=== PATIENT | male | born 1935 | race Caucasian/White ===

== ENCOUNTER 2019-04-05 21:39 | Emergency (ER) | payer MEDICARE, OTHER ==
[~2019-04-05] VITALS: Ht 167.6 cm; Wt 59.0 kg
[2019-04-05 21:39] VITALS: BP 165/81
--- NOTE | 2019-04-05 21:39 | NUR ---
PT ALBERTA ALS FROM [facility] WITH C/O ALOC SUDDEN ONSET. PER FACILITY, THEY THOUGHT PATIENT WAS SLEEPING BUT THEN REALIZED PATIENT WAS NOT RESPONSIVE. PT HAS HX OF DEMENTIA AND IS NORMALLY AWAKE AND ALERT WITH SOME CONFUSION AND THAT IS HIS BASELINE BUT PT WAS NOT RESPONSIVE UPON ARRIVAL, GCS 3, NOT FOLLOWING COMMANDS. PATIENT NON VERBAL UPON ARRIVAL, NOT FOLLOWING COMMANDS, RESPONSIVE TO PAINFUL STIMULI. BP WAS 70/40 UPON EMS ARRIVAL WITH A HR OF 48. 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 BS UPON ARRIVAL 96. PT RECEIVED ROUTINE MEDICATIONS AROUND 1800 TONIGHT PER FACILITY.
--- NOTE | 2019-04-05 21:44 | NUR ---
DR HEARN AT BEDSIDE, SUSPECTING SEIZURE ACTIVITY. RECEIVED VERBAL ORDER FOR 0.5MG ATIVAN IVP. OVERRIDE-PULLED ATIVAN 2MG/1ML FROM ER PYXIS. ADMINISTERED ATIVAN 0.5MG IVP AT 2141. RECEIVED SECOND VERBAL ORDER FOR ADDITIONAL 0.5MG ATIVAN IVP. ADMINISTERED ADDITIONAL ATIVAN 0.5MG IVP AT 2143. REMAINING 1MG ATIVAN IN VIAL WASTED WITH 2 RN VERIFICATION.
[2019-04-05] MEDS ORDERED: ATOR20TA PO (21:50)
[2019-04-05] MEDS ORDERED: MECL-272 PO (21:50)
[2019-04-05] MEDS ORDERED: WARF-18 PO (21:50)
[2019-04-05] MEDS ORDERED: QUET50TA PO (21:50)
[2019-04-05] MEDS ORDERED: PROP20TA29 PO (21:50)
[2019-04-05] MEDS ORDERED: DIGO0.122 PO (21:50)
[2019-04-05] MEDS ORDERED: ATI.5 PO (21:50)
[2019-04-05] MEDS ORDERED: FINA5TAB1 PO (21:50)
[2019-04-05] MEDS ORDERED: TAMS0.4C96 PO (21:50)
[2019-04-05] MEDS ORDERED: SERT25TA PO (21:50)
[2019-04-05] MEDS ORDERED: LORazepam 2 MG/ML VIAL ONE (21:53)
[2019-04-05] MEDS ORDERED: LORazepam 2 MG/ML VIAL IVP ONE ×2 (21:55)
--- NOTE | 2019-04-05 21:55 | NUR ---
EKG BEING PERFORMED BY EMT AT BEDSIDE AT THIS TIME.
--- NOTE | 2019-04-05 21:56 | NUR ---
LABS DRAWN BY ALFREDO SANFORD AT BEDSIDE AND SET W/ RAY, TECH TO LAB.
[2019-04-05 22:07] LABS: BASOPHILS # (AUTO) 0.1 K/uL (0.00-0.22); BASOPHILS % (AUTO) 0.6 % (0.0-2.0); EOSINOPHILS # (AUTO) 0.2 K/uL (0-0.4); EOSINOPHILS % (AUTO) 2.5 % (0.0-4.0); HEMATOCRIT 42.5 % (36-52); LYMPHOCYTES # (AUTO) 1.8 K/uL (2.0-11.5); LYMPHOCYTES % (AUTO) 20.1 % (20.5-51.1); MEAN CORPUSCULAR HEMOGLOBIN 30 pg (27-31); MEAN CORPUSCULAR HGB CONC 33 g/dL (33-37); MEAN CORPUSCULAR VOLUME 90.5 fL (80-94); MONOCYTES % (AUTO) 11.3 % (1.7-9.3); NEUTROPHILS # (AUTO) 5.7 K/uL (1.8-7.7); NEUTROPHILS % (AUTO) 65.5 % (42.2-75.2); PLATELET COUNT (AUTO) 183 K/uL (140-450); RED BLOOD CELL COUNT(AUTO) 4.69 MIL/uL (4.20-6.10); RED CELL DISTRIBUTION WIDTH 14.8 % (11.6-13.7); WHITE BLOOD COUNT (AUTO) 8.7 K/uL (4.8-10.8)
[2019-04-05] MEDS ORDERED: MIDAZOLAM 2 MG/2 ML VIAL IM ONE (22:10)
--- NOTE | 2019-04-05 22:10 | NUR ---
#16 FR Saxena catheter utilizing sterile technique. Immediate return of 100 ml slightly cloudy yellow urine noted. Bedside drainage bag placed below level of bladder. Urine sample collected and sent to lab. Pt restless but able to tolerate procedure.
[2019-04-05] MEDS ORDERED: MIDAZOLAM 2 MG/2 ML VIAL IVP ONE (22:15)
[2019-04-05 22:24] LABS: ANION GAP 10.2 (8-16); CARBON DIOXIDE 25.4 mmol/L (21-32); CHLORIDE 109 mmol/L (98-107); CREATININE 1.1 mg/dL (0.7-1.3); GLUCOSE 102 mg/dL (74-106); POTASSIUM 4.6 mmol/L (3.5-5.1); SODIUM SERUM 140 mmol/L (136-145); UREA NITROGEN, BLOOD 30 mg/dL (7-18)
[2019-04-05 22:28] LABS: APPEARANCE,URINE CLEAR (CLEAR); BILIRUBIN,URINE NEGATIVE (NEGATIVE); BLOOD, URINE NEGATIVE (NEGATIVE); COLOR,URINE YELLOW (YELLOW); LEUKOCYTE ESTERASE ,URINE NEGATIVE (NEGATIVE); NITRITE, URINE NEGATIVE (NEGATIVE); PH,URINE 5.5 (5.0-9.0); UGLUCOSE NEGATIVE (NEGATIVE)
[2019-04-05 22:35] LABS: ALBUMIN 2.8 g/dL (3.4-5.0); AMYLASE 80 U/L (25-115); ASPARTATE AMINOTRANSFERASE 41 U/L (15-37); LIPASE 314 U/L (73-393); TOTAL BILIRUBIN 0.4 mg/dL (0.0-1.0)
[2019-04-05 22:37] LABS: BARBITURATE, URINE NEG. ng/ml (NEG <=200); BENZODIAZEPINE, URINE NEG. ng/mL (NEG <=200); CANNABINOID, URINE NEG. ng/mL (NEG <=50); COCAINE, URINE NEG. ng/mL (NEG <=300); OPIATE, URINE NEG. ng/mL (NEG <=2000); PHENCYCLIDINE SCREEN,URINE NEG. ng/mL (NEG <=25)
[2019-04-05 22:37] LABS: CREATINE KINASE MB 3.1 ng/mL (0-3.6)
--- NOTE | 2019-04-05 22:38 | NUR ---
PT RETURNED FROM CT VIA [facility]
--- NOTE | 2019-04-05 23:04 | NUR ---
PT SLEEPING IN BED, AROUSABLE TO TOUCH, AT BEDSIDE. VS NOTED, RR EVEN AND UNLABORED. ALL NEEDS MET AT THIS TIME.
--- NOTE | 2019-04-06 00:21 | NUR ---
PT SLEEPING IN BED, AROUSABLE TO TOUCH, AT BEDSIDE. VS NOTED, RR EVEN AND UNLABORED. ALL NEEDS MET AT THIS TIME.
--- NOTE | 2019-04-06 00:56 | NUR ---
Consent for CT chest angio signed by patient's Celia Stewart. 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
[2019-04-06] MEDS ORDERED: NACL 0.9% 1,000 ML IV ONE (01:10)
--- NOTE | 2019-04-06 01:26 | NUR ---
PT TAKEN TO CT VIA [facility]
--- NOTE | 2019-04-06 01:44 | NUR ---
PT RETURNED FROM CT VIA [facility]
--- NOTE | 2019-04-06 01:57 | NUR ---
PT SLEEPING IN BED, AROUSABLE TO TOUCH, AT BEDSIDE. VSS, RR EVEN AND UNLABORED. ALL NEEDS MET AT THIS TIME.
--- NOTE | 2019-04-06 03:44 | NUR ---
PT LAYING IN BED, AT BEDSIDE, PT IS MORE AWAKE, MILDLY RESTLESS, GCS 13 (4,3,6), RR EVEN AND UNLABORED. VSS. ALL NEEDS MET.
[2019-04-06] MEDS ORDERED: cefTRIAXone 1,000 MG VIAL ONE (04:21)
--- NOTE | 2019-04-06 04:45 | NUR ---
Patient to be transferred to [facility]. Is being transferred due to NSTEMI. Receiving facility has accepting physician and available space. ER physician has signed transfer form. Patient or responsible green party has agreed to transfer and signed form. Patient belongings inventoried and will be sent with patient. Copy of nursing notes, lab reports, EKG, Physicians Orders and X-rays to be sent with patient. Report called to Niharika FUENTES at receiving facility. [facility] ambulance service has been called for transfer. ETA is 15mins.
[2019-04-06 05:11] VITALS: BP 121/46
--- NOTE | 2019-04-06 05:11 | NUR ---
GAVE REPORT TO [facility]. ALL PT BELONGINGS SENT WITH PT AND PT'S . VS NOTED, CONDITION STABLE.
[2019-04-07 12:22] LABS: HEPATITIS A ANTIBODY IGM Negative (Negative); HEPATITIS B CORE AB TOTAL Negative (Negative); HEPATITIS B SURFACE ANTIBODY Non Reactive (.); HEPATITIS B SURFACE ANTIGEN Negative (Negative)
== END 2019-04-06 05:11 | disposition short-term general hospital (02) ==
LOC: MED 21:39
DX: I21.4 Non-ST elevation (NSTEMI) myocardial infarction (principal); R41.82 Altered mental status, unspecified; F03.90 Unspecified dementia, unspecified severity, without behavioral disturbance, psychotic disturbance, mood disturbance, and anxiety; I10 Essential (primary) hypertension; Z79.899 Other long term (current) drug therapy
CPT/HCPCS: 36415; 36600; 51702; 70450; 71045; 71275; 80053; 80305; 81003; 82140; 82150; 82550; 82553; 82803; 83605; 83690; 84484; 85025; 85379; 85610; 85730; 86704; 86706; 86708; 86709; 86803; 87040; 87340; 93005; 96361; 96365; 96375; 99291; 99292; J0696; J2060; J2250; J7030; J7060; Q0092; Q9967